=== PATIENT | female | born 1990 | race Hispanic/Latino ===

== ENCOUNTER 2024-02-06 08:15 | Emergency (ER) | payer BC | END 2024-02-06 09:38 | disposition home or self-care (01) | LOC: ERS 08:15 | DX: S93.402A Sprain of unspecified ligament of left ankle, initial encounter (principal); K31.84 Gastroparesis; G40.909 Epilepsy, unspecified, not intractable, without status epilepticus; X50.1XXA Overexertion from prolonged static or awkward postures, initial encounter; Y93.89 Activity, other specified; Y92.69 Other specified industrial and construction area as the place of occurrence of the external cause ==